=== PATIENT | male | born 1995 | race Caucasian/White ===

== ENCOUNTER 2020-10-06 16:16 | Observation (INO) ==
--- NOTE | 2020-10-06 16:33 | ERNOTE ---
Psychological HPI - General Chief Complaint: Suicide Attempt Source: Reports: patient Exam Limitations: Reports: no limitations - Immun/Allergies/Home Medications Allergies/Adverse Reactions: Allergies No Known Allergies Allergy (Unverified 10/06/20 16:25) Home Medications: HOME MEDICATIONS Amitriptyline HCl 150 mg PO HS 10/06/20 [Last Taken Unknown] Ibuprofen [Motrin] 800 mg PO TID PRN 10/06/20 [Last Taken Unknown] QUEtiapine FUMARATE [Seroquel] 100 mg PO DAILY 10/06/20 [Last Taken Unknown] - History of Present Illness Narrative: Patient is coming to the ER for drug overdose. Patient states that around 3 this afternoon he took ibuprofen 800 by the handful, states that he stopped counting after 20 or 30 pills. He also took 2 each of his Seroquel and amitriptyline. Denies any other drugs, no alcohol. Afterwards he told his girlfriend, who told his parents, who called EMS. When asked why he took the medicines, he states that he just does not want to live anymore, because life is not worth living. He admits to 3 prior suicide attempts, one was with pills, once was attempting to hang himself in his long-term cell, the third time "they talked me out of it". When asked about admission for mental health he states he was admitted once for alcohol rehab when he was in long-term found lying about being an alcoholic rather than pacing time in long-term. He states that he currently still wants to (while he is smiling at me), he lives with his dad, describes the relationship as supportive. 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 Time Seen by Provider: 10/06/20 16:20 Date (Duration): 10/06/20 Time (Timing): 15:00 Arrived by: Reports: ambulance Mechanism: Reports: overdose Situational Problems: Reports: lost job Associated Symptoms: Reports: depressed Prior Treament: Reports: similar symptoms before Review of Systems - Review of Systems Constitutional: Absent: recent illness, fever ENT: Absent: nose congestion Respiratory: Absent: shortness of breath Cardiology: Absent: chest pain Gastrointestinal/Abdominal: Absent: nausea, abdominal pain Genitourinary: Present: no symptoms reported Musculoskeletal: Absent: back pain Neurological: Absent: headache Medical History (Last Reviewed 10/06/20 @ 17:40 by Elizabeth Arshad MD) Depression Hx of suicide attempt Surgical History: Surgical History (Last Reviewed 10/06/20 @ 17:40 by Elizabeth Arshad MD) Hx of right knee surgery Family History: Family History (Last Updated 10/06/20 @ 16:29 by Elana Hunter, RN) Other No pertinent family history Social History: (Last Updated 10/06/20 @ 16:27 by Elana Hunter, RN) Social History: household members: family Tobacco: Smoking Status: Never smoker Alcohol: alcohol intake: current alcohol intake frequency: holiday/special occasion Substance Use: substance use type: does not use Psychological Exam - Exam General Appearance: Present: wd/wn, alert, no apparent distress, other - well groomed, shaved body Head Exam: Present: normal inspection, no evidence of injury Neurological: Present: alert, normal mood/affect - smiling, calm, oriented x 3 Thoughts/Hallucinations: Present: normal thought pattern, no apparent hallucination Behavior/Eye Contact/Speech: Present: cooperative, good eye contact, normal speech Eye Exam: Normal inspection: bilateral Ears, Nose, Throat: Present: normal ENT inspection Respiratory: Present: no respiratory distress, normal breath sounds, no accessory muscle use, lungs clear Cardiovascular/Chest: Present: regular rate, rhythm, no murmur Gastrointestinal/Abdominal: Present: nontender, nondistended, soft Extremity Exam: Present: no edema Skin Exam: Present: normal color, warm/dry, other - no signs of injury Progress - Results and Orders Patient's Lab Results:: I have reviewed the patient's lab results. - Vital Signs Patient's Vital Signs:: I have reviewed the patient's vital signs. Vital Signs: Vital Signs 10/06/20 16:16 Temperature 37.1 C Pulse Rate 113 H Respiratory Rate 16 Blood Pressure 156/83 H O2 Sat by Pulse Oximetry 97 - EKG EKG #1 EKG: NSR - sinustachy, other - J point elevation EKG read: Interp. by me - Progress/Reassessment Chief Complaint: Suicide Attempt Progress Note-Subjective: 10/06/20 17:55 discussed with yamil Wilson to admit patient to the hospital for drug overdose patient is more sleepy now but arousable when talked to Departure Clinical Impression: Drug overdose, intentional Qualifiers: Encounter type: initial encounter Qualified Code(s): T50.902A - Poisoning by unspecified drugs, medicaments and biological substances, intentional self-harm, initial encounter - Departure Disposition: Still a patient Condition: Stable
[2020-10-06 16:41] LABS: Hematocrit 52.5 % (42.0-52.0); Hemoglobin 16.7 gm/dL (13.5-18.0); Mean Cell Volume 81.9 fl (78-100); Mean Corpuscular Hemoglobin 26.1 pg (27-31); Mean Corpuscular Hgb Conc 31.8 g/dl (32-36); Mean Platelet Volume 9.4 fl (8-11.3); Platelet Count 254 K/mm3 (150-450); Red Blood Count 6.41 M/mm3 (4.7-6.0); Red Cell Distribution Width 13.1 % (11.5-14.0); White Blood Count 11.8 K/mm3 (4.0-10.5)
[2020-10-06 16:44] LABS: Total Cells Counted 100
[2020-10-06 16:57] LABS: Urine Bilirubin Negative (NEGATIVE); Urine Blood Negative /ul (NEGATIVE); Urine Ketone Negative (NEGATIVE); Urine Nitrite Negative (NEGATIVE); Urine Protein Negative (NEGATIVE); Urine Urobilinogen Normal (NORMAL)
[2020-10-06 17:09] LABS: Urine Appearance Clear (CLEAR); Urine Bacteria TRACE; Urine Color Yellow; Urine RBC TRACE /hpf (0-5); Urine WBC TRACE /hpf (0-5)
[2020-10-06 17:12] LABS: ALT 35 U/L (19-67); AST 17 U/L (0-48); Albumin * 4.9 gm/dl (3.4-5.0); Alkaline Phosphatase * 73 U/L (50-170); Anion Gap 17.5 mmol/L (6.8-13.8); BUN/Creatinine Ratio 11.8 (9.0-21.6); Bilirubin, Total 0.3 mg/dL (0.0-1.1); Blood Urea Nitrogen 15 mg/dL (6-23); Ca. Corrected For Albumin 9.2 mg/dL (8.4-10.2); Calcium * 10.2 mg/dL (7.9-10.9); Carbon Dioxide 23.7 mmol/L (24-32.6); Chloride 100 mmol/L (97-106); Glucose * 112 mg/dL (70-110); Potassium 4.2 mmol/L (3.4-4.6); Salicylate Less than 2.8 mg/dL (2.8-20.0); Sodium 137 mmol/L (132-142); TSH * 2.319 uIU/mL (0.358-3.74); Total Protein 8.6 gm/dL (6.2-8.2)
[2020-10-06 17:15] LABS: Cocaine Ur Negative (NEGATIVE); Urine Barbiturate Negative (NEGATIVE); Urine Benzodiazepines Negative (NEGATIVE); Urine Opiates Negative (NEGATIVE); Urine PCP Negative (NEGATIVE); Urine THC Negative (NEGATIVE)
[2020-10-06 17:19] LABS: Atypical (Reactive) Lymph 3 % (0-2); Eosinophil 2 % (0-3); Lymphocyte 19 % (20-51); Monocyte 4 % (0-9); Neutrophil 72 % (42-75); Neutrophil # 8.5 K/mm3 (1.3-6.0)
[2020-10-06 17:20] LABS: Anisocytosis 1+; Platelet Estimate Normal (NORMAL)
[2020-10-06] MEDS ORDERED: NORMAL SALINE 1,000 ML IV ONE (17:54)
--- NOTE | 2020-10-06 18:18 | HP ---
Chief Complaint - Chief Complaint Date of Service: 10/06/20 Time of Service: 18:01 Chief Complaint: Suicide attempt via overdose History of Present Illness: 25-year-old male with a past medical history of suicide attempt, depression p resents from home with an overdose attempt. He took ibuprofen 800 mg 20 to 30 pills and extra Seroquel and amitriptyline doses as well. He states he was trying to kill himself. He called his girlfriend and let her know what he did and she had him brought to the emergency room. In the emergency room his vitals are stable with mild tachycardia of 113. Blood work shows a mild leukocytosis of 11.8. He is being admitted for observation. Medical History (Last Reviewed 10/06/20 @ 17:40 by Elizabeth Arshad MD) Depression Hx of suicide attempt Surgical History: Surgical History (Last Reviewed 10/06/20 @ 17:40 by Elizabeth Arshad MD) Hx of right knee surgery Family History: Family History (Last Updated 10/06/20 @ 16:29 by Elana Hunter RN) Other No pertinent family history Social History: (Last Updated 10/06/20 @ 16:27 by Elana Hunter RN) Social History: household members: family Tobacco: Smoking Status: Never smoker Alcohol: alcohol intake: current alcohol intake frequency: holiday/special occasion Substance Use: substance use type: does not use Review Of Systems (GEN) - Review of Systems Generalized/Overall Review: Present: Fatigue. Absent: Fever Respiratory: Absent: Shortness of Breath Cardiac: Absent: Chest Pain Abdominal: Absent: Abdominal Pain Misc: All systems neg except as marked Immunizations: IMMUNIZATION HX Immunizations Up to Date Yes History of Influenza Vaccine No Hx Pneumococcal Vaccination No Allergies/Adverse Reactions: Allergies Allergy/AdvReac Type Severity Reaction Status Date / Time No Known Allergies Allergy Unverified 10/06/20 16:25 Home Medications: HOME MEDICATIONS Amitriptyline HCl 150 mg PO HS 10/06/20 [Last Taken Unknown] Ibuprofen [Motrin] 800 mg PO TID PRN 10/06/20 [Last Taken Unknown] QUEtiapine FUMARATE [Seroquel] 100 mg PO DAILY 10/06/20 [Last Taken Unknown] Exam - Exam Vital Signs: Vital Signs - Last Taken Temp 37.1 C 10/06/20 16:16 Pulse 104 H 10/06/20 16:55 Resp 18 10/06/20 16:55 BP 127/76 10/06/20 16:55 Pulse Ox 93 10/06/20 16:55 Constitutional: Present: Cooperative, Well developed, Well nourished, No dist ress, Lethargic, Young ENT Exam: Present: hearing grossly normal Eye Exam: bilateral eye: normal inspection, PERRL, EOMI Neck: Present: non-tender, supple. Absent: lymphadenopathy (R), lymphadenopathy (L) Back Exam: Present: normal inspection, no CVA tenderness, no vertebral tenderness Respiratory: Present: lungs clear, no respiratory distress, no accessory muscle use, No wheezing. Absent: crackles, rhonchi Cardiovascular/Chest: Present: normal peripheral pulses, regular rate, rhythm, no edema, no murmur Peripheral Pulses: dorsalis-pedis (R): 2+, dorsalis-pedis (L): 2+ Abdomen: Present: Normal bowel sounds, soft, nontender Extremity: Present: no pedal edema Skin Exam: Present: normal color, warm/dry Neurologic: Present: normal mood/affect Appearance: Present: appropriate appearance Eye contact: Present: cooperative. Absent: good eye contact Thoughts: Present: normal mood /affect Diagnostic Studies: Abnormal Lab Results 10/06/20 10/06/20 Range/Units 16:33 16:33 WBC 11.8 H (4.0-10.5) K/mm3 RBC 6.41 H (4.7-6.0) M/mm3 Hct 52.5 H (42.0-52.0) % MCH 26.1 L (27-31) pg MCHC 31.8 L (32-36) g/dl Lymphocytes % (Manual) 19 L (20-51) % Neutrophils # (Manual) 8.5 H (1.3-6.0) K/mm3 Atypic/Reactive Lymphs 3 H (0-2) % Carbon Dioxide 23.7 L (24-32.6) mmol/L Anion Gap 17.5 H (6.8-13.8) mmol/L Random Glucose 112 H (70-110) mg/dL Total Protein 8.6 H (6.2-8.2) gm/dL Salicylates Less than 2.8 L (2.8-20.0) mg/dL Acetaminophen Less than 0.2 L (10.0-30.0) mcg/mL Laboratory Results WBC 11.8 K/mm3 (4.0-10.5) H 10/06/20 16: RBC 6.41 M/mm3 (4.7-6.0) H 10/06/20 16:33 Hgb 16.7 gm/dL (13.5-18.0) 10/06/20 16: Hct 52.5 % (42.0-52.0) H 10/06/20 16: MCV 81.9 fl (78-100) 10/06/20 16: MCH 26.1 pg (27-31) L 10/06/20 16: MCHC 31.8 g/dl (32-36) L 10/06/20 16: RDW 13.1 % (11.5-14.0) 10/06/20 16: Plt Count 254 K/mm3 (150-450) 10/06/20 16: MPV 9.4 fl (8-11.3) 10/06/20 16: Neutrophils % (Manual) 72 % (42-75) 10/06/20 16: Lymphocytes % (Manual) 19 % (20-51) L 10/06/20 16: Monocytes % (Manual) 4 % (0-9) 10/06/20 16: Eosinophils % (Manual) 2 % (0-3) 10/06/20 16:33 Neutrophils # (Manual) 8.5 K/mm3 (1.3-6.0) H 10/06/20 16: Lymphocytes # (Manual) 2.2 k/mm3 (1.5-3.5) 10/06/20 16: Monocytes # (Manual) 0.5 k/mm3 (0.0-1.0) 10/06/20 16: Eosinophils # (Manual) 0.2 k/mm3 (0.0-0.7) 10/06/20 16: Atypic/Reactive Lymphs 3 % (0-2) H 10/06/20 16:33 Platelet Estimate Normal (NORMAL) 10/06/20 16:33 Anisocytosis 1+ 10/06/20 16:33 Sodium 137 mmol/L (132-142) 10/06/20 16:33 Plasma Sodium 137 mmol/L (130-142) 10/06/20 16:33 Potassium 4.2 mmol/L (3.4-4.6) 10/06/20 16:33 Chloride 100 mmol/L (97-106) 10/06/20 16:33 Carbon Dioxide 23.7 mmol/L (24-32.6) L 10/06/20 16:33 Anion Gap 17.5 mmol/L (6.8-13.8) H 10/06/20 16:33 BUN 15 mg/dL (6-23) 10/06/20 16:33 Creatinine 1.27 mg/dL (0.4-1.4) 10/06/20 16:33 Est GFR (Non-Af Amer) 75 mL/min (60-130) 10/06/20 16:33 BUN/Creatinine Ratio 11.8 (9.0-21.6) 10/06/20 16:33 Random Glucose 112 mg/dL (70-110) H 10/06/20 16:33 Calcium 10.2 mg/dL (7.9-10.9) 10/06/20 16:33 Calcium Adj for Albumin 9.2 mg/dL (8.4-10.2) 10/06/20 16:33 Total Bilirubin 0.3 mg/dL (0.0-1.1) 10/06/20 16:33 AST 17 U/L (0-48) 10/06/20 16:33 ALT 35 U/L (19-67) 10/06/20 16:33 Alkaline Phosphatase 73 U/L (50-170) 10/06/20 16:33 Total Protein 8.6 gm/dL (6.2-8.2) H 10/06/20 16:33 Albumin 4.9 gm/dl (3.4-5.0) 10/06/20 16:33 TSH 2.319 uIU/mL (0.358-3.74) 10/06/20 16:33 Urine Color Yellow 10/06/20 14:46 Urine Appearance Clear (CLEAR) 10/06/20 14:46 Urine pH 7.0 pH (5.0-7.0) 10/06/20 14:46 Ur Specific [place] 1.020 SP.GR. (1.005-1.030) 10/06/20 14:46 Urine Protein Negative mg/dL (NEGATIVE) 10/06/20 14:46 Urine Glucose (UA) Negative mg/dL (NEGATIVE) 10/06/20 14:46 Urine Ketones Negative mg/dL (NEGATIVE) 10/06/20 14:46 Urine Blood Negative /ul (NEGATIVE) 10/06/20 14:46 Urine Nitrate Negative (NEGATIVE) 10/06/20 14:46 Urine Bilirubin Negative mg/dl (NEGATIVE) 10/06/20 14:46 Urine Urobilinogen Normal EU/dl (NORMAL) 10/06/20 14:46 Ur Leukocyte Esterase Negative /ul (NEGATIVE) 10/06/20 14:46 Urine RBC Trace /hpf (0-5) 10/06/20 14:46 Urine WBC Trace /hpf (0-5) 10/06/20 14:46 Ur Epithelial Cells Trace /hpf (0-5) 10/06/20 14:46 Urine Bacteria Trace (NONE) 10/06/20 14:46 Urine Culture Comments No culture indicated 10/06/20 14:46 Salicylates Less than 2.8 mg/dL (2.8-20.0) L 10/06/20 16:33 Urine Opiates Screen Negative (NEGATIVE) 10/06/20 14:46 Acetaminophen Less than 0.2 mcg/mL (10.0-30.0) L 10/06/20 16:33 Barbiturate Screen Negative (NEGATIVE) 10/06/20 14:46 Ur Phencyclidine Scrn Negative (NEGATIVE) 10/06/20 14:46 Urine Amphetamine Negative (NEGATIVE) 10/06/20 14:46 U Benzodiazepines Scrn Negative (NEGATIVE) 10/06/20 14:46 Urine Cocaine Screen Negative (NEGATIVE) 10/06/20 14:46 Urine Marijuana (THC) Negative (NEGATIVE) 10/06/20 14:46 Ethyl Alcohol Less than 3.0 mg/dL (0.0-10.0) 10/06/20 16:33 Assessment/Plan - Narrative Narrative: 25-year-old male with a past medical history of suicide attempt, depression presents from home with an overdose attempt. He took ibuprofen 800 mg 20 to 30 pills and extra Seroquel and amitriptyline doses as well. He states he was trying to kill himself. He called his girlfriend and let her know what he did and she had him brought to the emergency room. In the emergency room his vitals are stable with mild tachycardia of 113. Blood work shows a mild leukocytosis of 11.8. He is being admitted for observation. Plan #1 psychiatry consult once his mentation improves #2 CBC and CMP in the morning #3 one-to-one monitoring - Assessment/Plan (1) Drug overdose, intentional Problem: Acute Qualifiers: Encounter type: initial encounter Qualified Code(s): T50.902A - Poisoning by unspecified drugs, medicaments and biological substances, intentional self- harm, initial encounter (2) Depression Problem: Acute
[2020-10-07 06:39] LABS: Hematocrit 49.4 % (42.0-52.0); Hemoglobin 15.5 gm/dL (13.5-18.0); Mean Cell Volume 83.7 fl (78-100); Mean Corpuscular Hemoglobin 26.3 pg (27-31); Mean Corpuscular Hgb Conc 31.4 g/dl (32-36); Mean Platelet Volume 9.4 fl (8-11.3); Platelet Count 219 K/mm3 (150-450); Red Cell Distribution Width 13.6 % (11.5-14.0); White Blood Count 11.7 K/mm3 (4.0-10.5)
[2020-10-07 06:41] LABS: Total Cells Counted 100
[2020-10-07 07:13] LABS: Eosinophil 3 % (0-3); Lymphocyte 22 % (20-51); Monocyte 5 % (0-9); Neutrophil 70 % (42-75); Neutrophil # 8.2 K/mm3 (1.3-6.0)
[2020-10-07 07:14] LABS: Platelet Estimate Normal (NORMAL); RBC Morphology Normal (NORMAL)
[2020-10-07 07:20] LABS: ALT 31 U/L (19-67); AST 14 U/L (0-48); Alkaline Phosphatase * 61 U/L (50-170); Anion Gap 13.9 mmol/L (6.8-13.8); BUN/Creatinine Ratio 9.5 (9.0-21.6); Bilirubin, Total 0.3 mg/dL (0.0-1.1); Blood Urea Nitrogen 16 mg/dL (6-23); Ca. Corrected For Albumin 8.7 mg/dL (8.4-10.2); Carbon Dioxide 24.3 mmol/L (24-32.6); Chloride 103 mmol/L (97-106); Glucose * 99 mg/dL (70-110); Potassium 4.2 mmol/L (3.4-4.6); Sodium 137 mmol/L (132-142); Total Protein 7.6 gm/dL (6.2-8.2)
--- NOTE | 2020-10-07 14:30 | PN ---
Subjective - Date and Time Seen Date: 10/07/20 Time: 09:40 Subjective Narrative: He states he feels well. Denies chest pain, shortness of breath or abdominal pain. He has not had any bowel movements today. He is urinating with no difficulty. Objective - Review of Systems Generalized/Overall Review: Denies: Fever Respiratory: Denies: Shortness of Breath Cardiac: Denies: Chest Pain Abdominal: Denies: Abdominal Pain Misc: All systems neg except as marked - Vitals Vitals: Last Vital Signs Temp 36.3 C 10/07/20 07:23 Pulse 79 10/07/20 14:18 Resp 16 10/07/20 07:23 BP 143/88 H 10/07/20 09:00 Pulse Ox 99 10/07/20 09:00 - Abnormal Lab Findings Abnormal Lab Findings: Abnormal Lab Results 10/06/20 10/06/20 10/07/20 Range/Units 16:33 16:33 06:25 WBC 11.8 H 11.7 H (4.0-10.5) K/mm3 RBC 6.41 H (4.7-6.0) M/mm3 Hct 52.5 H (42.0-52.0) % MCH 26.1 L 26.3 L (27-31) pg MCHC 31.8 L 31.4 L (32-36) g/dl Lymphocytes % (Manual) 19 L (20-51) % Neutrophils # (Manual) 8.5 H 8.2 H (1.3-6.0) K/mm3 Atypic/Reactive Lymphs 3 H (0-2) % Carbon Dioxide 23.7 L (24-32.6) mmol/L Anion Gap 17.5 H (6.8-13.8) mmol/L Creatinine (0.4-1.4) mg/dL Est GFR (Non-Af Amer) (60-130) mL/min Random Glucose 112 H (70-110) mg/dL Total Protein 8.6 H (6.2-8.2) gm/dL Salicylates Less than 2.8 L (2.8-20.0) mg/dL Acetaminophen Less than 0.2 L (10.0-30.0) mcg/mL 10/07/20 Range/Units 06:25 WBC (4.0-10.5) K/mm3 RBC (4.7-6.0) M/mm3 Hct (42.0-52.0) % MCH (27-31) pg MCHC (32-36) g/dl Lymphocytes % (Manual) (20-51) % Neutrophils # (Manual) (1.3-6.0) K/mm3 Atypic/Reactive Lymphs (0-2) % Carbon Dioxide (24-32.6) mmol/L Anion Gap 13.9 H (6.8-13.8) mmol/L Creatinine 1.68 H D (0.4-1.4) mg/dL Est GFR (Non-Af Amer) 54 L D (60-130) mL/min Random Glucose (70-110) mg/dL Total Protein (6.2-8.2) gm/dL Salicylates (2.8-20.0) mg/dL Acetaminophen Less than 0.2 L (10.0-30.0) mcg/mL - Exam Constitutional: Present: Alert, Cooperative, Well developed, Well nourished, No distress, Young ENT Exam: Present: hearing grossly normal Neck: Present: non-tender, supple. Absent: lymphadenopathy (R), lymphadenopathy (L) Respiratory: Present: lungs clear, no respiratory distress, no accessory muscle use, No wheezing. Absent: crackles, rhonchi Cardiovascular/Chest: Present: normal peripheral pulses, regular rate, rhythm, no murmur Abdomen: Present: Normal bowel sounds, soft, nontender Extremity: Present: no pedal edema Skin Exam: Present: normal color, warm/dry Neurologic: Present: alert, normal mood/affect Appearance: Present: appropriate appearance Eye contact: Present: cooperative Thoughts: Present: normal mood /affect Assessment/Plan Plan Narrative: 25-year-old male with a past medical history of suicide attempt, depression presents from home with an overdose attempt. He took ibuprofen 800 mg 20 to 30 pills and extra Seroquel and amitriptyline doses as well. He states he was trying to kill himself. He called his girlfriend and let her know what he did and she had him brought to the emergency room. In the emergency room his vitals are stable with mild tachycardia of 113. Blood work shows a mild leukocytosis of 11.8. He is being admitted for observation. His kidney function has declined likely secondary to the ibuprofen overdose. I will repeat CBC and CMP in the morning. I have spoken with our psychiatric nurse practitioner Esperanza Santos and she will see the patient today to determine what his discharge disposition will be. Plan #1 psychiatry consult for today since his mentation has improved. #2 CBC and CMP in the morning #3 one-to-one monitoring # resume regular diet - Problems/Diagnosis (1) Drug overdose, intentional Problem: Acute Qualifiers: Encounter type: initial encounter Qualified Code(s): T50.902A - Poisoning by unspecified drugs, medicaments and biological substances, intentional self- harm, initial encounter (2) Depression Problem: Acute (3) Worsening renal function Problem: Acute
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
[2020-10-08 11:58] LABS: Hematocrit 48.6 % (42.0-52.0); Hemoglobin 15.3 gm/dL (13.5-18.0); Mean Cell Volume 82.8 fl (78-100); Mean Corpuscular Hemoglobin 26.1 pg (27-31); Mean Corpuscular Hgb Conc 31.5 g/dl (32-36); Mean Platelet Volume 9.4 fl (8-11.3); Platelet Count 222 K/mm3 (150-450); Red Blood Count 5.87 M/mm3 (4.7-6.0); Red Cell Distribution Width 13.2 % (11.5-14.0); White Blood Count 10.2 K/mm3 (4.0-10.5)
[2020-10-08 12:01] LABS: Total Cells Counted 100
[2020-10-08 12:11] LABS: Albumin * 4.1 gm/dl (3.4-5.0); BUN/Creatinine Ratio 11.1 (9.0-21.6); Bilirubin, Total 0.5 mg/dL (0.0-1.1); Ca. Corrected For Albumin 9.1 mg/dL (8.4-10.2); Calcium * 9.5 mg/dL (7.9-10.9); Total Protein 7.7 gm/dL (6.2-8.2)
[2020-10-08 12:22] LABS: Atypical (Reactive) Lymph 3 % (0-2); Band 2 % (0-2.0); Eosinophil 1 % (0-3); Lymphocyte 18 % (20-51); Monocyte 6 % (0-9); Neutrophil 70 % (42-75); Neutrophil # 7.1 K/mm3 (1.3-6.0)
[2020-10-08 12:23] LABS: Platelet Estimate Normal (NORMAL)
[2020-10-08 12:25] LABS: RBC Morphology Normal (NORMAL)
--- NOTE | 2020-10-08 14:39 | PN ---
Progess Note - Interim Date: 10/08/20 Time: 14:36 Narrative: 10/08/20 14:38 Nino was seen and labs reviewed. He is cleared from a medical standpoint and ok to transfer to inpatient psych per psychiatry recommendations.
--- NOTE | 2020-10-08 17:39 | DS ---
Transfer Discharge Summary - Diagnosis(s)/Problems (1) Drug overdose, intentional Problem: Acute (2) Acute renal failure Problem: Resolved (3) Bipolar disorder Problem: Chronic - Course Description of Stay: Nino is a 25 yo male admitted for suicide attempt with reportedly 20-30 tablets of Ibuprofen 800mg, Seroquel, and Amitriptyline. He reported he was trying to kill himself as it would be a mercy. He has reportedly multiple attempts of suicide in the past including attempted hanging. He has diagnosed bipolar disorder and was seen by our farmworkers. She believes he is not a candidate for outpatient treatment at this time and recommends inpatient psychiatric management. Psychiatry has called the infectious disease physician and placed him in 48 hour hold until placement can be found. He was evaluated medically and initially had an elevation of his creatinine likely secondary to ibuprofen, but this resolved back to normal and he is medically cleared for discharge to inpatient treatment. Inpatient treatment was found at [facility] and he will be transferred to their care. Procedures Performed: none - Results and Findings Results and Findings: Laboratory Results - last 24 hr 10/08/20 10/08/20 11:50 11:50 WBC 10.2 RBC 5.87 Hgb 15.3 Hct 48.6 MCV 82.8 MCH 26.1 L MCHC 31.5 L RDW 13.2 Plt Count 222 MPV 9.4 Neutrophils % (Manual) 70 Band Neuts % (Manual) 2 Lymphocytes % (Manual) 18 L Monocytes % (Manual) 6 Eosinophils % (Manual) 1 Neutrophils # (Manual) 7.1 H Lymphocytes # (Manual) 1.8 Monocytes # (Manual) 0.6 Eosinophils # (Manual) 0.1 Atypic/Reactive Lymphs 3 H Platelet Estimate Normal RBC Morphology Normal Sodium 138 Plasma Sodium 138 Potassium 4.0 Chloride 101 Carbon Dioxide 27.0 Anion Gap 14.0 H BUN 12 Creatinine 1.08 Est GFR (Non-Af Amer) 90 D BUN/Creatinine Ratio 11.1 Random Glucose 97 Calcium 9.5 Calcium Adj for Albumin 9.1 Total Bilirubin 0.5 AST 16 ALT 27 Alkaline Phosphatase 64 Total Protein 7.7 Albumin 4.1 - Medications Medications: Active Medications Discontinued Medications Sodium Chloride (Sodium Chloride 0.9%) 1,000 mls @ 500 mls/hr IV .Q2H ONE Stop: 10/06/20 19:53 Last Infusion: 10/06/20 19:43 Dose: Infused Documented by: - Disposition Disposition: Psychiatric Hospital Condition: Stable Discharge Date: 10/08/20 Discharge Time: 17:38
[2020-10-08 20:47] VITALS: BP 141/89
== END 2020-10-08 18:30 ==
LOC: ER 16:16 → INTOOBSV 18:04 → MS 18:04
PROVIDERS: ADMIT Internal Medicine; ATTEND Internal Medicine